=== PATIENT | female | born 1995 | race American Indian/Alaskan Native ===

== ENCOUNTER 2021-02-03 05:35 | Emergency (ER) | payer SELFPAY ==
[2021-02-03] MEDS ORDERED: FLUCONAZOLE 200 MG TAB PO STA (07:06)
[2021-02-03] MEDS ORDERED: metroNIDAZOLE 500 MG TAB PO ONE (07:06)
[2021-02-03] MEDS ORDERED: LIDOCAINE-MPF (1%) 10 MG/1 ML VIAL 5 ML INFILTRATI ONE (07:06)
[2021-02-03] MEDS ORDERED: AZITHROMYCIN 250 MG TAB PO ONE (07:06)
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
[2021-02-03 08:16] VITALS: BP 136/84
--- NOTE | 2021-02-03 12:04 | Electrocardiograph Report ---
[facility] Test Date: 2021-02-03 Test Time: 05:45:45 Pat Name: HARJEET DUKE Department: Room: Gender: F [employer] Operator: Carlo : 1995 Requested By: LUIS MATTHEWS Order Number: [id number] Reading MD: Derrick Foster Measurements Intervals [place] Rate: 78 P: 43 ME: 166 QRS: 41 QRSD: 91 T: -12 QT: 381 QTc: 436 Interpretive Statements Sinus rhythm No previous ECG available for comparison Electronically Signed On 02-03-2021 12:04:19 EST by Derrick Foster
== END 2021-02-03 08:14 | disposition home or self-care (01) ==
LOC: ED 05:35
DX: T76.21XA Adult sexual abuse, suspected, initial encounter (principal); N76.0 Acute vaginitis; F41.9 Anxiety disorder, unspecified; Z72.89 Other problems related to lifestyle; Z79.899 Other long term (current) drug therapy; Y92.89 Other specified places as the place of occurrence of the external cause
CPT/HCPCS: 93005; 96372; 99282; J0696; J3490